=== PATIENT | female | born 1965 | race African-American/Black ===

== ENCOUNTER 2017-02-23 17:17 | Emergency (ER) | payer BC, OTHER ==
[2017-02-23 17:33] VITALS: BP 138/86; PULSE 73; TEMP 98; BMI 27.8
[2017-02-23 18:42] LABS: BASOPHIL 0.5 % (0-2.0); EOSINOPHIL 0.7 % (0-4.5); MCHC 33.4 g/dl (32.0-36.0); MEAN CELL VOLUME 95.9 fl (80-96); MEAN PLT VOLUME 8.9 fl (7.5-11.1); NEUTROPHILS 46.3 % (42.8-82.8); PLATELET COUNT 216 K/MM3 (134-434); RDW 12.9 % (11.6-15.6); WHITE BLOOD COUNT 4.6 K/mm3 (4.0-10.0)
[2017-02-23 18:55] LABS: INR 1.06 (0.82-1.09); PROTHROMBIN TIME (PATIENT) 11.7 SEC (9.98-11.88)
--- NOTE | 2017-02-23 19:16 | PDOC ---
[id number] [id number] CHEST PAIN Time Seen by Provider: 02/23/17 19:15 History Source: Patient - History of Present Illness Initial Comments: 02/23/17 19:40 51 year old female with reproducible left sided chest and back pain x 5 days today with left anterior chest heaviness. seen by pmd today and sent into ED for evaluation. denies SOB, NV, abdominal pain, urinary symptoms, + URI symptoms and cough which has resolved. Past History - Past Medical History Allergies/Adverse Reactions: Allergies Allergy/AdvReac Type Severity Reaction Status Date / Time No Known Allergies Allergy Verified 02/23/17 17:33 Home Medications: Ambulatory Orders NK [No Known Home Medication] 02/23/17 Other medical history: denies - Psycho/Social/Smoking Cessation Hx Suicidal Ideation: No Smoking History: Never smoked Information on smoking cessation initiated: No Hx Alcohol Use: No Drug/Substance Use Hx: No Substance Use Type: None Cardiac Specific PMH - Complaint Specific PMHX Abdominal Aortic Aneurysm: No Angina: No Cardiac Arrhythmia: No Cardiac Stent: No GERD: No Myocardial Infarction: No Pacemaker: No Pulmonary Embolus: No Valvular Heart Disease: No Peripheral Vascular Disease: No Review of Systems - Review of Systems Able to Perform ROS?: Yes Is the patient limited Italian proficient: No Constitutional: No: Symptoms Reported, See HPI, Chills, Diaphoresis, Fever, Loss of Appetite, Malaise, Night Sweats, Weakness, Weight Stable, Unintentional Wgt. Loss, Unexplained wgt Loss, Other Respiratory: Yes: Cough. No: Symptoms reported, See HPI, Orthopnea, Shortness of Breath, SOB with Exertion, SOB at Rest, Stridor, Wheezing, Productive cough, Hemoptysis, Other Cardiac (ROS): Yes: Chest Pain, Chest Tightness. No: Symptoms Reported, See HPI , Edema, Irregular Heart Rate, Lightheadedness, Palpitations, Syncope, Other ABD/GI: No: Symptoms Reported, See HPI, Abdominal Distended, Abd. Pain w/ defecation, Blood Streaked Bowels, Constipated, Diarrhea, Difficulty Swallowing , Nausea, Poor Appetite, Poor Fluid Intake, Rectal Bleeding, Vomiting, Indigestion, Abdominal cramping, Tarry Stools, Other *Physical Exam - Vital Signs Last Vital Signs Temp Pulse Resp BP Pulse Ox 98 F 73 17 138/86 99 02/23/17 17:31 02/23/17 17:31 02/23/17 17:31 02/23/17 17:31 02/23/17 17:31 - Physical Exam General Appearance: Yes: Appropriately Dressed Respiratory/Chest: positive: Chest Tender, Lungs Clear, Normal Breath Sounds Cardiovascular: positive: Regular Rhythm, Regular Rate Gastrointestinal/Abdominal: positive: Normal Bowel Sounds, Soft Extremity: positive: Normal Capillary Refill, Normal Inspection, Normal Range of Motion Integumentary: positive: Normal Color, Dry, Warm Neurologic: positive: Fully Oriented, Alert, Normal Mood/Affect, Motor Strength 03/06 ED Treatment Course - LABORATORY CBC & Chemistry Diagram: 02/23/17 18:33 02/23/17 18:33 - ADDITIONAL ORDERS Additional order review: 02/23/17 18:33 RBC 3.96 MCV 95.9 MCHC 33.4 RDW 12.9 MPV 8.9 Neutrophils % 46.3 Lymphocytes % 43.8 H Monocytes % 8.7 Eosinophils % 0.7 Basophils % 0.5 - RADIOLOGY Chest X-Ray Result: No Infiltrates - Medications Given in the ED: ED Medications Discontinued Medications Generic Name Dose Route Start Last Admin Trade Name Radha PRN Reason Stop Dose Admin Ibuprofen 600 mg 02/23/17 20:46 02/23/17 21:16 Motrin - PO 02/23/17 20:47 600 mg ONCE ONE Administration 03/06/17 14:02 Progress Note - Progress Note Progress Note: A: Chest pain vs musculoskeletal P: cbc cmp troponin ua chest xray *DC/Admit/Observation/Transfer Diagnosis at time of Disposition: Costal chondritis - Discharge Dispostion Disposition: HOME - Referrals Referrals: STAFF,NOT ON [Primary Care Provider] - - Patient Instructions Printed Discharge Instructions: DI for Atypical Chest Pain Additional Instructions: take ibuprofen 400mg every 6 hours as needed for pain follow up with your doctor as soon as possible. return to the ER if symptoms worsen
[2017-02-23 19:27] LABS: ALBUMIN 3.4 g/dl (3.4-5.0); ANION GAP 9 (8-16); BILIRUBIN,TOTAL 0.4 mg/dL (0.2-1.0); CALCIUM 8.1 mg/dL (8.5-10.1); CO2 25 mmol/L (21-32); COCKROFT - GAULT 149.6425; CREATININE 0.5 mg/dL (0.55-1.02); GLUCOSE,RANDOM 67 mg/dL (74-106); SGOT/AST 34 U/L (15-37); SGPT/ALT 44 U/L (12-78)
[2017-02-23 19:30] LABS: ALK PHOS 115 U/L (45-117); TROPONIN I < 0.02 ng/ml (0.00-0.05)
[2017-02-23] MEDS ORDERED: IBUPROFEN 600 MG TABLET (FP) PO ONE ×2 (20:46→21:00)
--- NOTE | 2017-02-24 09:54 | EKG ---
Test Reason : Blood Pressure : / mmHG Vent. Rate : 078 BPM Atrial Rate : 078 BPM P-R Int : 116 ms QRS Dur : 080 ms QT Int : 420 ms P-R-T Axes : 064 063 032 degrees QTc Int : 478 ms NORMAL SINUS RHYTHM POSSIBLE LEFT ATRIAL ENLARGEMENT NONSPECIFIC ST AND T WAVE ABNORMALITY NO PREVIOUS ECGS AVAILABLE Confirmed by MD WADSWORTH MARJORY ([id number]) on 02/24/2017 9:54:24 AM Referred By: Confirmed By:WINNIE WADSWORTH MD
== END 2017-02-23 21:20 | disposition home or self-care (01) ==
LOC: JER 17:17
DX: M94.0 Chondrocostal junction syndrome [Tietze] (principal)
CPT/HCPCS: 36415; 71020-TC; 80053; 82550; 83735; 84484; 84703; 85025; 85610; 93005; 93010; 99284-25

== ENCOUNTER 2025-04-20 17:24 | Emergency (ER) | payer OTHER ==
[2025-04-20 17:37] VITALS: BP 111/69; PULSE 86; RESP 16; TEMP 98.8; BMI 29.2
== END 2025-04-20 19:27 | disposition home or self-care (01) ==
LOC: JER 17:24
DX: S06.0X9A Concussion with loss of consciousness of unspecified duration, initial encounter (principal); V86.09XA Driver of other special all-terrain or other off-road motor vehicle injured in traffic accident, initial encounter; Y92.410 Unspecified street and highway as the place of occurrence of the external cause
CPT/HCPCS: 70450-TC; 72125-TC; 99284-25